=== PATIENT | male | born 1980 | race Caucasian/White ===

== ENCOUNTER 2017-12-11 18:10 | Emergency (ER) | payer MEDICAID ==
[~2017-12-11] VITALS: Ht 170.2 cm; Wt 79.4 kg
[2017-12-11 18:13] VITALS: BP 126/85
--- NOTE | 2017-12-11 18:23 | NUR ---
37Y/M C/O COUGH FOR 7 DAYS, CHEST HURTS WHEN HE COUGH. ER MD MADE AWARE OF PT STATUS.
--- NOTE | 2017-12-11 18:49 | NUR ---
Patient discharged with v/s stable. Written and verbal after care instructions given and explained. Patient alert, oriented and verbalized understanding of instructions. Ambulatory with steady gait. All questions addressed prior to discharge. ID band removed. Patient advised to follow up with PMD. Rx of PROMTHAZINE, PREDNISONE, AND ZITHROMAX given. Patient educated on indication of medication including possible reaction and side effects. Opportunity to ask questions provided and answered.
[2017-12-11 18:50] VITALS: BP 126/85
== END 2017-12-11 18:49 | disposition home or self-care (01) ==
LOC: MED 18:10
DX: J45.909 Unspecified asthma, uncomplicated (principal); R05 Cough; Z88.0 Allergy status to penicillin
CPT/HCPCS: 99283

== ENCOUNTER 2018-06-09 12:19 | Emergency (ER) | payer MEDICAID ==
[~2018-06-09] VITALS: Ht 172.7 cm; Wt 80.4 kg
[2018-06-09 12:24] VITALS: BP 130/87
--- NOTE | 2018-06-09 12:32 | NUR ---
Patient ambulated to bed 5. RN evaluating patient at bedside.
--- NOTE | 2018-06-09 13:43 | NUR ---
pt c/o cough w/ SORE throat x today 01/21; denies fever. hx;none rx;none
[2018-06-09] MEDS ORDERED: ALBUTEROL 0.083% 2.5 MG/3 ML NEBU INH ONE (13:45)
[2018-06-09] MEDS ORDERED: IPRATROPIUM 0.02% 0.5 MG/2.5 ML NEBU INH ONE (13:45)
[2018-06-09] MEDS ORDERED: predniSONE 20 MG TAB PO ONE (13:45)
[2018-06-09] MEDS ORDERED: AZITHROMYCIN 250 MG TAB PO ONE (13:45)
[2018-06-09 15:43] VITALS: BP 129/64
--- NOTE | 2018-06-09 15:43 | NUR ---
Patient discharged with v/s stable. Written and verbal after care instructions given and explained. Patient alert, oriented and verbalized understanding of instructions. Ambulatory with steady gait. All questions addressed prior to discharge. ID band removed. Patient advised to follow up with PMD. Rx of ZITHROMAX/ALBUTEROL/ROBITUSSIN DM given. Patient educated on indication of medication including possible reaction and side effects. Opportunity to ask questions provided and answered.
== END 2018-06-09 15:35 | disposition home or self-care (01) ==
LOC: MED 12:19
DX: J02.9 Acute pharyngitis, unspecified (principal); Z88.0 Allergy status to penicillin
CPT/HCPCS: 94640; 99283; J7512; J7613; J7644

== ENCOUNTER 2018-08-11 11:59 | Emergency (ER) | payer MEDICAID ==
[~2018-08-11] VITALS: Ht 172.7 cm; Wt 77.1 kg
[2018-08-11 12:06] VITALS: BP 148/92
[2018-08-11 12:35] VITALS: BP 125/75
== END 2018-08-11 12:35 | disposition home or self-care (01) ==
LOC: MED 11:59
DX: J06.9 Acute upper respiratory infection, unspecified (principal); Z88.0 Allergy status to penicillin
CPT/HCPCS: 99283

== ENCOUNTER 2018-12-20 11:02 | Emergency (ER) | payer MEDICAID ==
[~2018-12-20] VITALS: Ht 170.2 cm; Wt 83.6 kg
[2018-12-20 11:05] VITALS: BP 130/85
--- NOTE | 2018-12-20 11:23 | NUR ---
PATIENT AMBULATED TO BED 2.
--- NOTE | 2018-12-20 11:30 | NUR ---
PATIENT PRESENTS TO ED WITH N/V/D AND INTERMITTENT ABDOMINAL PAIN. AAOX4. PT DENIES ANY FEVER, CP, SOB, OR COUGH AT THIS TIME; PATIENT STATES PAIN OF 3/10 AT THIS TIME; VSS; PATIENT POSITIONED FOR COMFORT; HOB ELEVATED; BEDRAILS UP X1; BED DOWN.
[2018-12-20] MEDS ORDERED: DICYCLOMINE 20 MG/2 ML VIAL IM ONE (11:55)
[2018-12-20] MEDS ORDERED: ONDANSETRON 4 MG ODT PO ONE (11:55)
[2018-12-20 12:50] VITALS: BP 118/86
--- NOTE | 2018-12-20 12:52 | NUR ---
Patient discharged with v/s stable. Written and verbal after care instructions given and explained. Patient alert, oriented and verbalized understanding of instructions. Ambulatory with steady gait. All questions addressed prior to discharge. ID band removed. Patient advised to follow up with PMD. Rx of Lawrence clarke given. Patient educated on indication of medication including possible reaction and side effects. Opportunity to ask questions provided and answered. Addendum: 12/20/18 at 1739 by FELICIANO nanda
== END 2018-12-20 12:52 | disposition home or self-care (01) ==
LOC: MED 11:02
DX: R11.2 Nausea with vomiting, unspecified (principal); R19.7 Diarrhea, unspecified; R50.9 Fever, unspecified; R05 Cough; Z88.0 Allergy status to penicillin
CPT/HCPCS: 87804; 99283; Q0162; J0500

== ENCOUNTER 2019-03-31 14:13 | Emergency (ER) | payer MEDICAID ==
[~2019-03-31] VITALS: Ht 170.2 cm; Wt 84.4 kg
[2019-03-31 14:18] VITALS: BP 140/87
[2019-03-31 16:42] VITALS: BP 111/83
== END 2019-03-31 16:42 | disposition home or self-care (01) ==
LOC: MED 14:13
DX: B34.9 Viral infection, unspecified (principal); R11.2 Nausea with vomiting, unspecified; R19.7 Diarrhea, unspecified; Z88.0 Allergy status to penicillin
CPT/HCPCS: 71045; 87804; 99284; Q0092

== ENCOUNTER 2019-08-11 08:57 | Emergency (ER) | payer MEDICAID ==
[~2019-08-11] VITALS: Ht 170.2 cm; Wt 81.6 kg
[2019-08-11 08:58] VITALS: BP 136/81
--- NOTE | 2019-08-11 09:04 | NUR ---
PT AMBULATED TO ER BED 06
--- NOTE | 2019-08-11 09:16 | NUR ---
C/O COUGH , SORE THROAT, RUNNY NOSE, NASAL AND CHEST CONGESTION X 4 DAYS. DENIES FEVER, STATES CHILLS. STATES BODY ACHES. DID NOT RECEIVE FLU VACCINE THIS YEAR. TAKING NYQUIL TO NO RELIEF. PRESENTS REQUESTING FOR COUGH MEDICATION RX. MED HX:DENIES
--- NOTE | 2019-08-11 10:15 | NUR ---
DR MERCADO EVALUATING PT AT BEDSIDE
[2019-08-11 10:37] VITALS: BP 136/81
--- NOTE | 2019-08-11 10:37 | NUR ---
Patient discharged with v/s stable. Written and verbal after care instructions given and explained. Patient alert, oriented and verbalized understanding of instructions. Ambulatory with steady gait. All questions addressed prior to discharge. ID band removed. Patient advised to follow up with PMD. Rx of PROMETHAZINE, PREDNISONE, DOXYCYCLINE HYCLATE given. Patient educated on indication of medication including possible reaction and side effects. Opportunity to ask questions provided and answered.
== END 2019-08-11 10:37 | disposition home or self-care (01) ==
LOC: MED 08:57
DX: B34.9 Viral infection, unspecified (principal); Z88.0 Allergy status to penicillin; F12.10 Cannabis abuse, uncomplicated
CPT/HCPCS: 99283

== ENCOUNTER 2020-02-07 06:33 | Emergency (ER) | payer MEDICAID ==
[~2020-02-07] VITALS: Ht 170.2 cm; Wt 90.3 kg
[2020-02-07 06:40] VITALS: BP 131/98
--- NOTE | 2020-02-07 06:40 | NUR ---
C/O BLOOD IN URINE X TODAY. HAS BEEN HAVING DISCOMFORT X 3 DAYS AND RATES PAIN 4/10 AND DESCRIBES IT PRESSURE ANS SHARP AND LOCATED ON THE BLADDER REGION.. DENIES ANY N,V,D, OR FEVER. VSS. A&OX4 STEADY GAIT. ALLERGIES: PENICLLIN PMH: DENIES
--- NOTE | 2020-02-07 06:44 | NUR ---
PT AMBULATED TO ER BED 11
[2020-02-07] MEDS ORDERED: NACL 0.9% 1,000 ML IV SCH (06:52)
[2020-02-07] MEDS ORDERED: KETOROLAC 30 MG/ML VIAL IVP ONE (06:55)
--- NOTE | 2020-02-07 07:05 | NUR ---
PT AMBULATED TO RESTROOM WITH STEADY GAIT.
--- NOTE | 2020-02-07 07:11 | NUR ---
PT TAKEN TO CT VIA WHEELCHAIR
--- NOTE | 2020-02-07 07:19 | NUR ---
PT RETURNED FROM CT
[2020-02-07 07:37] LABS: BASOPHILS # (AUTO) 0.1 K/uL (0.00-0.22); BASOPHILS % (AUTO) 0.7 % (0.0-2.0); EOSINOPHILS # (AUTO) 0.1 K/uL (0-0.4); EOSINOPHILS % (AUTO) 1.5 % (0.0-4.0); HEMATOCRIT 45.9 % (36-52); LYMPHOCYTES # (AUTO) 2.5 K/uL (2.0-11.5); LYMPHOCYTES % (AUTO) 35.5 % (20.5-51.1); MEAN CORPUSCULAR HEMOGLOBIN 32 pg (27-31); MEAN CORPUSCULAR HGB CONC 35 g/dL (33-37); MEAN CORPUSCULAR VOLUME 90.5 fL (80-94); MONOCYTES # (AUTO) 0.6 K/uL (0.8-1.0); MONOCYTES % (AUTO) 8.8 % (1.7-9.3); NEUTROPHILS # (AUTO) 3.8 K/uL (1.8-7.7); NEUTROPHILS % (AUTO) 53.5 % (42.2-75.2); PLATELET COUNT (AUTO) 225 K/uL (140-450); RED BLOOD CELL COUNT(AUTO) 5.07 MIL/uL (4.20-6.10); RED CELL DISTRIBUTION WIDTH 13.1 % (11.6-13.7); WHITE BLOOD COUNT (AUTO) 7.1 K/uL (4.8-10.8)
[2020-02-07 07:39] LABS: APPEARANCE,URINE CLOUDY (CLEAR); BILIRUBIN,URINE NEGATIVE (NEGATIVE); BLOOD, URINE 3+ (NEGATIVE); COLOR,URINE BROWN (YELLOW); LEUKOCYTE ESTERASE ,URINE TRACE (NEGATIVE); NITRITE, URINE NEGATIVE (NEGATIVE); UGLUCOSE NEGATIVE (NEGATIVE)
[2020-02-07] MEDS ORDERED: IBUPROFEN 800 MG TAB PO ONE (07:40)
[2020-02-07 07:50] LABS: ALBUMIN 3.5 g/dL (3.4-5.0); ANION GAP 14.1 (8-16); CARBON DIOXIDE 24.9 mmol/L (21-32); TOTAL BILIRUBIN 0.7 mg/dL (0.0-1.0)
[2020-02-07 08:25] LABS: RBC,URINE 80-100 /HPF (0-5); WBC,URINE 0-5 /HPF (0-5)
[2020-02-07 09:01] VITALS: BP 128/92
--- NOTE | 2020-02-07 09:01 | NUR ---
Patient discharged with v/s stable. Written and verbal after care instructions given and explained. Patient alert, oriented and verbalized understanding of instructions. Ambulatory with steady gait. All questions addressed prior to discharge. ID band removed. Patient advised to follow up with PMD. Rx of tramadol,narcan,norco,motrin given. Patient educated on indication of medication including possible reaction and side effects. Opportunity to ask questions provided and answered.
== END 2020-02-07 09:01 | disposition home or self-care (01) ==
LOC: MED 06:33
DX: N20.0 Calculus of kidney (principal); R03.0 Elevated blood-pressure reading, without diagnosis of hypertension; F17.200 Nicotine dependence, unspecified, uncomplicated; Z88.0 Allergy status to penicillin
CPT/HCPCS: 36415; 80053; 81001; 83690; 85025; 99284; J1885; J7030

== ENCOUNTER 2020-02-18 14:42 | Emergency (ER) | payer MEDICAID ==
--- NOTE | 2020-02-18 15:10 | NUR ---
PATIENT LEFT WITHOUT BEING SEEN BY DR. BARAJAS . NO FURTHER CARE PROVIDED FOR PATIENT.
== END 2020-02-18 15:10 | disposition left against medical advice (07) ==
LOC: MED 14:42
DX: Z76.0 Encounter for issue of repeat prescription (principal); Z53.21 Procedure and treatment not carried out due to patient leaving prior to being seen by health care provider

== ENCOUNTER 2020-02-28 06:49 | Emergency (ER) | payer MEDICAID ==
[~2020-02-28] VITALS: Ht 167.6 cm; Wt 89.8 kg
[2020-02-28 06:53] VITALS: BP 142/93
--- NOTE | 2020-02-28 06:58 | NUR ---
PT AMBULATED TO BED #7
--- NOTE | 2020-02-28 07:17 | NUR ---
39 Y/O MALE C/O LOWER ABD INTERMITTENT PAIN RADIATING TO LEFT FLANK X3 WEEKS. PT STATES HE WAS DX WITH A KIDNEY STONE ON February, BUT HAS NOT YET PASSED STONE AND HAS BEEN HAVING ON/OFF LOWER ABD/FLANK PAIN RATING 9/10. PT HAS BEEN TAKING NORCO FOR THE PAIN BUT RECENTLY RAN OUT. DENIES ANY V/D, STATES NAUSEA IS INTERMITTENT. RESP EVEN AND UNLABORED. NO PMH ALLERGIES: PENICILLIN, TORADOL
[2020-02-28] MEDS ORDERED: KETOROLAC 30 MG/ML VIAL IVP ONE (07:30)
[2020-02-28] MEDS ORDERED: ONDANSETRON 4 MG/2 ML VIAL IVP ONE (07:30)
[2020-02-28] MEDS ORDERED: MORPHINE SULFATE 4 MG/ML SYR IVP ONE (07:40)
--- NOTE | 2020-02-28 07:55 | NUR ---
PT TRANSFERRED TO CT VIA WHEELCHAIR
[2020-02-28 07:58] LABS: BASOPHILS # (AUTO) 0.1 K/uL (0.00-0.22); BASOPHILS % (AUTO) 0.8 % (0.0-2.0); EOSINOPHILS # (AUTO) 0.1 K/uL (0-0.4); EOSINOPHILS % (AUTO) 1.3 % (0.0-4.0); HEMATOCRIT 48.5 % (36-52); HEMOGLOBIN 16.5 g/dL (12.0-18.0); LYMPHOCYTES # (AUTO) 2.7 K/uL (2.0-11.5); LYMPHOCYTES % (AUTO) 38.1 % (20.5-51.1); MEAN CORPUSCULAR HEMOGLOBIN 31 pg (27-31); MEAN CORPUSCULAR HGB CONC 34 g/dL (33-37); MEAN CORPUSCULAR VOLUME 91.4 fL (80-94); MONOCYTES # (AUTO) 0.6 K/uL (0.8-1.0); MONOCYTES % (AUTO) 8.3 % (1.7-9.3); NEUTROPHILS # (AUTO) 3.6 K/uL (1.8-7.7); NEUTROPHILS % (AUTO) 51.5 % (42.2-75.2); PLATELET COUNT (AUTO) 268 K/uL (140-450)
--- NOTE | 2020-02-28 08:04 | NUR ---
PT BACK FROM CT. SITTING IN BED
[2020-02-28] MEDS ORDERED: TAMSULOSIN 0.4 MG CAP PO ONE (08:15)
[2020-02-28 08:23] LABS: ALBUMIN 3.8 g/dL (3.4-5.0); ANION GAP 14.3 (8-16); CARBON DIOXIDE 28.2 mmol/L (21-32); CREATININE 1.3 mg/dL (0.6-1.3); POTASSIUM 4.5 mmol/L (3.5-5.1); TOTAL BILIRUBIN 0.6 mg/dL (0.0-1.0)
[2020-02-28 09:05] VITALS: BP 142/93
--- NOTE | 2020-02-28 09:06 | NUR ---
Patient discharged with v/s stable. Written and verbal after care instructions given and explained. Patient alert, oriented and verbalized understanding of instructions. Ambulatory with steady gait. All questions addressed prior to discharge. ID band removed. Patient advised to follow up with PMD. Rx of FLOMAX, NORCO given. Patient educated on indication of medication including possible reaction and side effects. Opportunity to ask questions provided and answered.
== END 2020-02-28 09:06 | disposition home or self-care (01) ==
LOC: MED 06:49
DX: N20.0 Calculus of kidney (principal); Z88.0 Allergy status to penicillin; Z88.8 Allergy status to other drugs, medicaments and biological substances
CPT/HCPCS: 36415; 74176; 80053; 83690; 85025; 96374; 96375; 99284; J2270; J2405

== ENCOUNTER 2020-11-04 08:14 | Emergency (ER) | payer MEDICAID ==
[~2020-11-04] VITALS: Ht 172.7 cm; Wt 90.3 kg
[2020-11-04 08:16] VITALS: BP 141/100
[2020-11-04 08:51] LABS: APPEARANCE,URINE SL CLOUDY (CLEAR); BILIRUBIN,URINE NEGATIVE (NEGATIVE); BLOOD, URINE 3+ (NEGATIVE); COLOR,URINE ORANGE (YELLOW); LEUKOCYTE ESTERASE ,URINE NEGATIVE (NEGATIVE); NITRITE, URINE NEGATIVE (NEGATIVE); PH,URINE 6.5 (5.0-9.0); UGLUCOSE NEGATIVE (NEGATIVE)
[2020-11-04 08:52] LABS: BASOPHILS # (AUTO) 0.1 K/uL (0.00-0.22); EOSINOPHILS % (AUTO) 0.5 % (0.0-4.0); HEMATOCRIT 46.6 % (36-52); HEMOGLOBIN 16.5 g/dL (12.0-18.0); LYMPHOCYTES # (AUTO) 2.2 K/uL (2.0-11.5); LYMPHOCYTES % (AUTO) 31.7 % (20.5-51.1); MEAN CORPUSCULAR HEMOGLOBIN 32 pg (27-31); MEAN CORPUSCULAR HGB CONC 35 g/dL (33-37); MEAN CORPUSCULAR VOLUME 90.9 fL (80-94); MONOCYTES # (AUTO) 0.5 K/uL (0.8-1.0); MONOCYTES % (AUTO) 7.2 % (1.7-9.3); NEUTROPHILS # (AUTO) 4.1 K/uL (1.8-7.7); NEUTROPHILS % (AUTO) 59.6 % (42.2-75.2); PLATELET COUNT (AUTO) 204 K/uL (140-450); RED BLOOD CELL COUNT(AUTO) 5.12 MIL/uL (4.20-6.10); RED CELL DISTRIBUTION WIDTH 13.2 % (11.6-13.7)
[2020-11-04 09:04] LABS: CARBON DIOXIDE 28.3 mmol/L (21-32); POTASSIUM 4.3 mmol/L (3.5-5.1); TOTAL BILIRUBIN 0.7 mg/dL (0.0-1.0)
[2020-11-04 09:08] LABS: RBC,URINE TOO NUMEROUS TO COUN /HPF (0-5); WBC,URINE 0-5 /HPF (0-5)
[2020-11-04] MEDS ORDERED: ONDA4TAB PO (09:21)
[2020-11-04] MEDS ORDERED: ACET-8386 PO (09:21)
[2020-11-04] MEDS ORDERED: TAMS0.4C96 PO (09:21)
[2020-11-04 09:49] VITALS: BP 141/100
== END 2020-11-04 09:50 | disposition home or self-care (01) ==
LOC: MED 08:14
DX: N20.0 Calculus of kidney (principal); Z88.0 Allergy status to penicillin; Z88.8 Allergy status to other drugs, medicaments and biological substances; Z79.899 Other long term (current) drug therapy
CPT/HCPCS: 36415; 80053; 81001; 83690; 85025; 87086; 99284

== ENCOUNTER 2020-12-07 08:21 | Emergency (ER) | payer MEDICAID ==
[~2020-12-07] VITALS: Ht 172.7 cm; Wt 93.4 kg
[~2020-12-07 08:21] MED LIST: ACET-8386 PO; ONDA4TAB PO; TAMS0.4C96 PO
[2020-12-07 08:30] VITALS: BP 138/102
--- NOTE | 2020-12-07 08:30 | NUR ---
Patient to bed 1. RN evaluating the patient at bedside.
--- NOTE | 2020-12-07 08:40 | NUR ---
40/M PRESENTS TO ED WITH C/O OF 7/10 SHARP ABDOMINAL PAIN X3 DAYS. PATIENT ALSO STATES HE HAS HAD NAUSEA, VOMITING, AND DIARRHEA AFTER EACH MEAL FOR 3 DAYS AND THAT HE HAS NOT HAD MUCH TO EAT. PATIENT STATES HE BEGAN TO HAVE CHILLS, BODY ACHES AND A TEMPERATURE OF 100.0 AT HOME YESTERDAY. PATIENT STATES THE PAIN IS MIDDLE EPIGASTRIC PAIN, AND RIGHT LOWER BACK PAIN ALONG WITH FLANK PAIN. RIGHT LOWER ABDOMEN IS TENDER TO TOUCH. PATIENT DENIES DYSURIA, HEMATURIA, BUT STATES HIS URINE IS A DARK BROWN.
[2020-12-07] MEDS ORDERED: ONDANSETRON 4 MG/2 ML VIAL IVP ONE (08:45)
[2020-12-07] MEDS ORDERED: MORPHINE SULFATE 4 MG/ML SYR IVP ONE ×2 (08:45→09:50)
[2020-12-07] MEDS ORDERED: FAMOTIDINE 20 MG/2 ML VIAL IVP ONE (08:45)
[2020-12-07] MEDS ORDERED: NACL 0.9% 1,000 ML IV SCH (08:45)
[2020-12-07 09:00] LABS: BASOPHILS % (AUTO) 0.7 % (0.0-2.0); EOSINOPHILS % (AUTO) 0.5 % (0.0-4.0); HEMATOCRIT 48.6 % (36-52); HEMOGLOBIN 16.8 g/dL (12.0-18.0); LYMPHOCYTES # (AUTO) 2.4 K/uL (2.0-11.5); LYMPHOCYTES % (AUTO) 38.3 % (20.5-51.1); MEAN CORPUSCULAR HEMOGLOBIN 32 pg (27-31); MEAN CORPUSCULAR HGB CONC 35 g/dL (33-37); MEAN CORPUSCULAR VOLUME 93.4 fL (80-94); MONOCYTES # (AUTO) 0.6 K/uL (0.8-1.0); NEUTROPHILS # (AUTO) 3.1 K/uL (1.8-7.7); NEUTROPHILS % (AUTO) 50.5 % (42.2-75.2); PLATELET COUNT (AUTO) 248 K/uL (140-450); RED CELL DISTRIBUTION WIDTH 13.5 % (11.6-13.7); WHITE BLOOD COUNT (AUTO) 6.2 K/uL (4.8-10.8)
--- NOTE | 2020-12-07 10:29 | NUR ---
PATIENT STILL UNABLE TO PROVIDE URINE.
[2020-12-07] MEDS ORDERED: ONDA4TAB PO (10:43)
[2020-12-07] MEDS ORDERED: ACET-8386 PO (10:43)
[2020-12-07] MEDS ORDERED: NAPR-1704 PO (10:43)
[2020-12-07] MEDS ORDERED: ATRO1TAB PO (10:43)
[2020-12-07 11:00] LABS: APPEARANCE,URINE CLEAR (CLEAR); BILIRUBIN,URINE NEGATIVE (NEGATIVE); BLOOD, URINE NEGATIVE (NEGATIVE); COLOR,URINE YELLOW (YELLOW); LEUKOCYTE ESTERASE ,URINE NEGATIVE (NEGATIVE); NITRITE, URINE NEGATIVE (NEGATIVE); UGLUCOSE NEGATIVE (NEGATIVE)
--- NOTE | 2020-12-07 11:13 | NUR ---
PATIENT APPEARS TO BE RESTING COMFORTABLY. PATIENTS WAITING FOR PENDING LAB RESULTS. CALL LIGHT WITHIN REACH, PATIENT PLACED IN A POSITION OF COMFORT. ALL NEEDS ADDRESSED AT THIS TIME.
[2020-12-07 11:56] LABS: ANION GAP 11.8 (8-16); CARBON DIOXIDE 28.1 mmol/L (21-32); POTASSIUM 3.9 mmol/L (3.5-5.1)
[2020-12-07 11:57] LABS: ALBUMIN 4.1 g/dL (3.4-5.0); CREATININE 1.1 mg/dL (0.6-1.3); TOTAL BILIRUBIN 1.7 mg/dL (0.0-1.0)
[2020-12-07 12:21] VITALS: BP 126/8
--- NOTE | 2020-12-07 12:22 | NUR ---
Patient discharged with v/s stable. Written and verbal after care instructions given and explained. Patient alert, oriented and verbalized understanding of instructions. Ambulatory with steady gait. All questions addressed prior to discharge. ID band removed. Patient advised to follow up with PMD. Rx of [place], Lomotil, Naproxen, Zofran given. Patient educated on indication of medication including possible reaction and side effects. Opportunity to ask questions provided and answered.
== END 2020-12-07 12:24 | disposition home or self-care (01) ==
LOC: MED 08:21
DX: K38.8 Other specified diseases of appendix (principal); R11.2 Nausea with vomiting, unspecified; R19.7 Diarrhea, unspecified; Z87.442 Personal history of urinary calculi; Z88.0 Allergy status to penicillin; Z88.1 Allergy status to other antibiotic agents; Z88.8 Allergy status to other drugs, medicaments and biological substances; Z79.899 Other long term (current) drug therapy
CPT/HCPCS: 36415; 74176; 80053; 81003; 83605; 83690; 85025; 87040; 96361; 96374; 96375; 96376; 99284; J2270; J2405; J3490; J7030

== ENCOUNTER 2020-12-23 07:36 | Emergency (ER) | payer MEDICAID ==
[~2020-12-23] VITALS: Ht 175.3 cm; Wt 92.5 kg
[~2020-12-23 07:36] MED LIST changes: +ATRO1TAB PO; +NAPR-1704 PO
--- NOTE | 2020-12-23 07:45 | NUR ---
PATIENT AMBULATED WITH STEADY GAIT TO BED 11
[2020-12-23 08:02] VITALS: BP 149/105
[2020-12-23] MEDS: ONDANSETRON 4 MG ODT PO ONE (08:38)
--- NOTE | 2020-12-23 08:39 | NUR ---
40/M presents to ED with c/o nausea/vomiting/diarrhea since 12/07/20. Patient states he was seen here on the 12/07/20 for the same complaint but shortly after felt the same symptoms ever since. Patient states he was prescribed medications that he misplaced and was unable to take. Patient denies abdominal pain, dysuria and hematuria. States he has been taking Tylenol and Motrin at home for the pain with some relief. Lower mid abdomen is tender to touch.
[2020-12-23] MEDS ORDERED: IBUP-2213 PO (08:49)
[2020-12-23] MEDS ORDERED: ONDA8TAB87 PO (08:49)
[2020-12-23] MEDS ORDERED: CIPR500T4 PO (08:49)
[2020-12-23] MEDS ORDERED: LOPE-289 PO (08:49)
--- NOTE | 2020-12-23 08:55 | NUR ---
Patient discharged with v/s stable. Written and verbal after care instructions given and explained. Patient alert, oriented and verbalized understanding of instructions. Ambulatory with steady gait. All questions addressed prior to discharge. ID band removed. Patient advised to follow up with PMD. Rx of Ibuprofen, Ciprofloxacin, Imodium, and Zofran given. Patient educated on indication of medication including possible reaction and side effects. Opportunity to ask questions provided and answered.
[2020-12-23 08:56] VITALS: BP 148/97
== END 2020-12-23 08:55 | disposition home or self-care (01) ==
LOC: MED 07:36
DX: S20.212A Contusion of left front wall of thorax, initial encounter (principal); R11.2 Nausea with vomiting, unspecified; R19.7 Diarrhea, unspecified; Z88.0 Allergy status to penicillin; Z88.1 Allergy status to other antibiotic agents; Z88.8 Allergy status to other drugs, medicaments and biological substances; Z79.899 Other long term (current) drug therapy; X58.XXXA Exposure to other specified factors, initial encounter; Y93.89 Activity, other specified; Y92.89 Other specified places as the place of occurrence of the external cause; Y99.8 Other external cause status
CPT/HCPCS: 99283; Q0162

== ENCOUNTER 2021-05-03 08:40 | Emergency (ER) | payer MEDICAID, SELFPAY ==
[~2021-05-03] VITALS: Ht 175.3 cm; Wt 95.3 kg
[~2021-05-03 08:40] MED LIST changes: +CIPR500T4 PO; +IBUP-2213 PO; +LOPE-289 PO; +ONDA8TAB87 PO
[2021-05-03 08:46] VITALS: BP 166/98
[2021-05-03] MEDS ORDERED: LORazepam 1 MG TAB PO ONE (10:25)
--- NOTE | 2021-05-03 10:29 | NUR ---
PT AMBULATED TO BED
--- NOTE | 2021-05-03 10:30 | NUR ---
40 Y/O MALE C/O NONRADIATING CHEST PAIN X5 DAYS. CP IS WORSE WITH COUGHING AND WITH MOVEMENT. +SOB/ COUGH WITH GREEN MUCUS. PT WAS PUSHED IN HIS CHEST IN SAME LOCATION X5 DAYS AGO. PT RECEIVED 1ST COVID VACCINE 04/30. STATES 510 PRESSURE PAIN. PMH:DENIES ALLERGIES:PCN, ERYTHROMYCIN, TORODOL
[2021-05-03] MEDS ORDERED: MORPHINE SULFATE 4 MG/ML SYR IM ONE (11:40)
--- NOTE | 2021-05-03 13:12 | NUR ---
Patient appears to be resting in bed. Vital Signs within normal limits. Respirations even and unlabored.
[2021-05-03] MEDS ORDERED: ACET-8386 PO ×2 (13:13→13:48)
[2021-05-03 13:40] VITALS: BP 150/82
--- NOTE | 2021-05-03 13:40 | NUR ---
Patient discharged with v/s stable. Written and verbal after care instructions given and explained. Patient alert, oriented and verbalized understanding of instructions. Ambulatory with steady gait. All questions addressed prior to discharge. ID band removed. Patient advised to follow up with PMD. Rx of HYDROCODONE/ACETAMINOPHEN given. Patient educated on indication of medication including possible reaction and side effects. Opportunity to ask questions provided and answered.
[2021-05-03] MEDS ORDERED: NAPR-54 PO (13:48)
== END 2021-05-03 13:40 | disposition home or self-care (01) ==
LOC: MED 08:40
DX: R07.89 Other chest pain (principal); R06.02 Shortness of breath; R05 Cough; F17.200 Nicotine dependence, unspecified, uncomplicated; Z88.0 Allergy status to penicillin; Z88.1 Allergy status to other antibiotic agents; Z88.8 Allergy status to other drugs, medicaments and biological substances; Z79.899 Other long term (current) drug therapy; Z71.6 Tobacco abuse counseling
CPT/HCPCS: 71045; 93005; 96372; 99283; J2270

== ENCOUNTER 2021-07-17 09:39 | Emergency (ER) | payer MEDICAID, SELFPAY ==
[~2021-07-17] VITALS: Ht 175.3 cm; Wt 96.6 kg
[~2021-07-17 09:39] MED LIST changes: +NAPR-54 PO
[2021-07-17 09:44] VITALS: BP 160/117
--- NOTE | 2021-07-17 09:51 | NUR ---
AMBULATED TO BED 1
[2021-07-17] MEDS ORDERED: IBUP-2213 PO (10:25)
[2021-07-17] MEDS ORDERED: PROM118S5 PO (10:25)
[2021-07-17 10:50] VITALS: BP 150/90
== END 2021-07-17 10:50 | disposition home or self-care (01) ==
LOC: MED 09:39
DX: J20.9 Acute bronchitis, unspecified (principal); H66.91 Otitis media, unspecified, right ear; Z88.0 Allergy status to penicillin; Z88.8 Allergy status to other drugs, medicaments and biological substances; Z79.899 Other long term (current) drug therapy
CPT/HCPCS: 99281

== ENCOUNTER 2021-09-04 08:04 | Emergency (ER) | payer MEDICAID, SELFPAY ==
[~2021-09-04] VITALS: Ht 175.3 cm; Wt 95.3 kg
[~2021-09-04 08:04] MED LIST changes: -ACET-8386 PO; -ATRO1TAB PO; -CIPR500T4 PO; -LOPE-289 PO; -NAPR-1704 PO; -NAPR-54 PO; -ONDA4TAB PO; -ONDA8TAB87 PO; +PROM118S5 PO
[2021-09-04 08:10] VITALS: BP 150/88
--- NOTE | 2021-09-04 08:13 | NUR ---
DEMETRIA. HANDED ON URINE CUP.
--- NOTE | 2021-09-04 08:24 | NUR ---
BIB SELF c/o 610 lower abdominal pain, hematuria, lower back pain , nausea, diarrhea x today. PMH: HTN
--- NOTE | 2021-09-04 08:42 | NUR ---
URINE WALKED TO THE LAB.
[2021-09-04] MEDS ORDERED: HYDROcodone/APAP 5/325 MG 1 TAB TAB PO ONE (09:20)
[2021-09-04] MEDS ORDERED: KETOROLAC 30 MG/ML VIAL IM ONE (09:20)
[2021-09-04 12:49] LABS: BASOPHILS # (AUTO) 0.1 K/uL (0.00-0.22); BASOPHILS % (AUTO) 0.9 % (0.0-2.0); EOSINOPHILS # (AUTO) 0.1 K/uL (0-0.4); EOSINOPHILS % (AUTO) 1.2 % (0.0-4.0); HEMATOCRIT 47.7 % (36-52); HEMOGLOBIN 17.1 g/dL (12.0-18.0); LYMPHOCYTES # (AUTO) 2.5 K/uL (2.0-11.5); LYMPHOCYTES % (AUTO) 32.2 % (20.5-51.1); MEAN CORPUSCULAR HEMOGLOBIN 33 pg (27-31); MEAN CORPUSCULAR HGB CONC 36 g/dL (33-37); MEAN CORPUSCULAR VOLUME 91.7 fL (80-94); MONOCYTES # (AUTO) 0.7 K/uL (0.8-1.0); MONOCYTES % (AUTO) 8.9 % (1.7-9.3); NEUTROPHILS # (AUTO) 4.4 K/uL (1.8-7.7); NEUTROPHILS % (AUTO) 56.8 % (42.2-75.2); PLATELET COUNT (AUTO) 274 K/uL (140-450); RED BLOOD CELL COUNT(AUTO) 5.21 MIL/uL (4.20-6.10); RED CELL DISTRIBUTION WIDTH 13.5 % (11.6-13.7); WHITE BLOOD COUNT (AUTO) 7.8 K/uL (4.8-10.8)
[2021-09-04 12:56] LABS: ALBUMIN 3.9 g/dL (3.4-5.0); CARBON DIOXIDE 23.8 mmol/L (21-32); CREATININE 0.8 mg/dL (0.6-1.3); POTASSIUM 3.8 mmol/L (3.5-5.1); TOTAL BILIRUBIN 1.1 mg/dL (0.0-1.0)
[2021-09-04] MEDS ORDERED: ACET-8386 PO ×2 (13:53→15:13)
[2021-09-04] MEDS ORDERED: NAPR-54 PO ×2 (13:53→15:13)
[2021-09-04 13:57] LABS: APPEARANCE,URINE CLOUDY (CLEAR); BILIRUBIN,URINE NEGATIVE (NEGATIVE); BLOOD, URINE 3+ (NEGATIVE); COLOR,URINE BROWN (YELLOW); LEUKOCYTE ESTERASE ,URINE TRACE (NEGATIVE); NITRITE, URINE POSITIVE (NEGATIVE); PH,URINE 6.5 (5.0-9.0); UGLUCOSE NEGATIVE (NEGATIVE)
[2021-09-04 14:00] LABS: RBC,URINE 80-100 /HPF (0-5)
[2021-09-04] MEDS ORDERED: CIPR250T6 PO ×2 (14:07→15:13)
--- NOTE | 2021-09-04 14:16 | NUR ---
Patient discharged with v/s stable. Written and verbal after care instructions given and explained. Patient alert, oriented and verbalized understanding of instructions. Ambulatory with steady gait. All questions addressed prior to discharge. ID band removed. Patient advised to follow up with PMD. Rx of HYDROCODONE/ACETAMINOPHEN, CIPROFLAXACIN, NAPROXEN given. Opportunity to ask questions provided and answered.
== END 2021-09-04 14:15 | disposition home or self-care (01) ==
LOC: MED 08:04
DX: N39.0 Urinary tract infection, site not specified (principal); Z87.442 Personal history of urinary calculi; Z79.899 Other long term (current) drug therapy; Z88.0 Allergy status to penicillin; Z88.8 Allergy status to other drugs, medicaments and biological substances
CPT/HCPCS: 36415; 80053; 81001; 85025; 87086; 99283

== ENCOUNTER 2021-09-06 09:37 | Emergency (ER) | payer MEDICAID, SELFPAY ==
[~2021-09-06] VITALS: Ht 175.3 cm; Wt 86.2 kg
[~2021-09-06 09:37] MED LIST changes: +ACET-8386 PO; +CIPR250T6 PO; +NAPR-54 PO
[2021-09-06 09:40] VITALS: BP 143/70
[2021-09-06] MEDS ORDERED: MORPHINE SULFATE 2 MG/ML SYR IM ONE (10:00)
[2021-09-06] MEDS ORDERED: KETOROLAC 30 MG/ML VIAL IM ONE (10:00)
[2021-09-06] MEDS ORDERED: MORPHINE SULFATE 2 MG/ML SYR ONE ×2 (11:04→11:12)
[2021-09-06] MEDS ORDERED: KETOROLAC 30 MG/ML VIAL ONE (11:05)
--- NOTE | 2021-09-06 11:15 | NUR ---
41 Y/O MALE BIBA C/O LLQ ABDOMINAL PAIN RADIATING TO L TESTICLE X3 DAYS. PT SEEN HERE 09/04 FOR SAME S/S AND STATES PAIN IS STILL THERE. DENIES NAUSEA/VOMITING/DIARRHEA. PT ALSO C/O HEMATURIA X2 DAYS AND "DIFFICULTY"/PAIN STARTING TO URINATE. ABD IS FLAT, SOFT, AND TENDER ON PALPATION. PT A/O X4 WITH EVEN AND UNLABORED RESPIRATIONS PMG:KIDNEY STONES, HTN ALLERGIES: PCN AND TORADOL
[2021-09-06 11:37] LABS: BASOPHILS % (AUTO) 0.6 % (0.0-2.0); EOSINOPHILS # (AUTO) 0.1 K/uL (0-0.4); HEMATOCRIT 44.9 % (36-52); HEMOGLOBIN 15.9 g/dL (12.0-18.0); LYMPHOCYTES # (AUTO) 2.4 K/uL (2.0-11.5); LYMPHOCYTES % (AUTO) 37.9 % (20.5-51.1); MEAN CORPUSCULAR HEMOGLOBIN 33 pg (27-31); MEAN CORPUSCULAR HGB CONC 35 g/dL (33-37); MEAN CORPUSCULAR VOLUME 91.9 fL (80-94); MONOCYTES # (AUTO) 0.6 K/uL (0.8-1.0); NEUTROPHILS # (AUTO) 3.3 K/uL (1.8-7.7); NEUTROPHILS % (AUTO) 51.5 % (42.2-75.2); PLATELET COUNT (AUTO) 240 K/uL (140-450); RED BLOOD CELL COUNT(AUTO) 4.88 MIL/uL (4.20-6.10); RED CELL DISTRIBUTION WIDTH 13.6 % (11.6-13.7); WHITE BLOOD COUNT (AUTO) 6.3 K/uL (4.8-10.8)
[2021-09-06 11:49] LABS: APPEARANCE,URINE CLOUDY (CLEAR); BILIRUBIN,URINE NEGATIVE (NEGATIVE); BLOOD, URINE 3+ (NEGATIVE); LEUKOCYTE ESTERASE ,URINE NEGATIVE (NEGATIVE); NITRITE, URINE NEGATIVE (NEGATIVE); PH,URINE 6.5 (5.0-9.0); UGLUCOSE NEGATIVE (NEGATIVE)
[2021-09-06 11:57] LABS: ALBUMIN 3.9 g/dL (3.4-5.0); ANION GAP 16.9 (8-16); POTASSIUM 3.9 mmol/L (3.5-5.1); TOTAL BILIRUBIN 0.9 mg/dL (0.0-1.0)
[2021-09-06 11:58] LABS: COLOR,URINE BLOODY (YELLOW)
[2021-09-06 12:04] LABS: RBC,URINE >20 (MANY) /HPF (0-5); WBC,URINE 0-5 /HPF (0-5)
[2021-09-06] MEDS ORDERED: TAMS0.4C97 PO ×3 (12:20→12:55)
[2021-09-06] MEDS ORDERED: ACET-8386 PO ×2 (12:20)
[2021-09-06 13:10] VITALS: BP 145/95
--- NOTE | 2021-09-06 13:10 | NUR ---
Patient discharged with v/s stable. Written and verbal after care instructions ABOUT KIDNEY STONES given and explained. Patient alert, oriented and verbalized understanding of instructions. Ambulatory with steady gait. All questions addressed prior to discharge. ID band removed. Patient advised to follow up with PMD. Rx of NORCO 5-325MG AND TAMSULOSIN given. Patient educated on indication of medication including possible reaction and side effects. Opportunity to ask questions provided and answered.
== END 2021-09-06 13:10 | disposition home or self-care (01) ==
LOC: MED 09:37
DX: N23 Unspecified renal colic (principal); Z88.0 Allergy status to penicillin; Z88.6 Allergy status to analgesic agent; N20.2 Calculus of kidney with calculus of ureter
CPT/HCPCS: 36415; 74176; 80053; 81001; 85025; 96372; 99284; J1885; J2270

== ENCOUNTER 2021-09-13 11:25 | Emergency (ER) | payer MEDICAID ==
[~2021-09-13] VITALS: Ht 175.3 cm; Wt 95.3 kg
[~2021-09-13 11:25] MED LIST changes: +TAMS0.4C97 PO
[2021-09-13 11:57] VITALS: BP 152/99
[2021-09-13] MEDS ORDERED: PRED50TA2 PO (12:08)
[2021-09-13] MEDS ORDERED: CETI10SG1 PO (12:08)
[2021-09-13] MEDS ORDERED: AZIT250T4 PO (12:08)
--- NOTE | 2021-09-13 12:12 | NUR ---
PT SEEN AND D/C BY DR CRAWFORD, NO NURSING INTERVENTIONS PROVIDED
--- NOTE | 2021-09-13 12:13 | NUR ---
Patient discharged with v/s stable. Written and verbal after care instructions ABOUT UVULITIS given and explained. Patient alert, oriented and verbalized understanding of instructions. All questions addressed prior to discharge. ID band removed. Patient advised to follow up with PMD. Rx of PREDNISONE AND ZITHROMAX Z PACK given. Patient educated on indication of medication including possible reaction and side effects. Opportunity to ask questions provided and answered.
== END 2021-09-13 12:12 | disposition home or self-care (01) ==
LOC: MED 11:25
DX: K12.2 Cellulitis and abscess of mouth (principal); I10 Essential (primary) hypertension; Z79.2 Long term (current) use of antibiotics; Z79.899 Other long term (current) drug therapy; Z79.891 Long term (current) use of opiate analgesic; Z79.1 Long term (current) use of non-steroidal anti-inflammatories (NSAID); Z88.0 Allergy status to penicillin; Z88.6 Allergy status to analgesic agent
CPT/HCPCS: 99283

== ENCOUNTER 2021-12-17 15:18 | Emergency (ER) | payer MEDICAID ==
[~2021-12-17] VITALS: Ht 170.2 cm; Wt 93.2 kg
[~2021-12-17 15:18] MED LIST changes: +AZIT250T4 PO; +CETI10SG1 PO; +PRED50TA2 PO
[2021-12-17 15:22] VITALS: BP 100/63
--- NOTE | 2021-12-17 15:25 | NUR ---
Pt ambulated to bed 06 with steady/even gait
[2021-12-17] MEDS ORDERED: NACL 0.9% 1,000 ML IV ONE (15:30)
[2021-12-17] MEDS ORDERED: MORPHINE SULFATE 4 MG/ML SYR IVP ONE (15:30)
--- NOTE | 2021-12-17 15:31 | NUR ---
Dr. Botello is evaluating pt at bedside
--- NOTE | 2021-12-17 16:18 | NUR ---
DR CHRISTENSEN RE-EVALUATING PATIENT AT BEDSIDE.
[2021-12-17] MEDS ORDERED: ACET-8386 PO (16:33)
--- NOTE | 2021-12-17 16:50 | NUR ---
IV removed, catheter intact and site benign. Applied folded 4x4 gauze and tape to stop bleeding.
--- NOTE | 2021-12-17 16:50 | NUR ---
The patient's care was reviewed and supervised by Warren Dugan RN.
[2021-12-17] MEDS ORDERED: IBUP-2213 PO (16:55)
--- NOTE | 2021-12-17 16:55 | NUR ---
Patient discharged with v/s stable. Written and verbal after care instructions given and explained for Acute Back Pain (Adult). Patient alert, oriented and verbalized understanding of instructions. Ambulatory with steady gait. All questions addressed prior to discharge. ID band removed. Patient advised to follow up with PMD. Rx of Hydrocodone/Acetaminophen given. Patient educated on indication of medication including possible reaction and side effects. Opportunity to ask questions provided and answered.
== END 2021-12-17 16:55 | disposition home or self-care (01) ==
LOC: MED 15:18
DX: M54.50 Low back pain, unspecified (principal); F17.200 Nicotine dependence, unspecified, uncomplicated; I10 Essential (primary) hypertension; Z79.899 Other long term (current) drug therapy; Z88.0 Allergy status to penicillin; Z88.8 Allergy status to other drugs, medicaments and biological substances
CPT/HCPCS: 81002; 96361; 96374; 99283; J2270; J7030

== ENCOUNTER 2022-02-03 03:37 | Emergency (ER) | payer MEDICAID ==
[~2022-02-03] VITALS: Ht 170.2 cm; Wt 93.0 kg
[2022-02-03 03:42] VITALS: BP 138/116
--- NOTE | 2022-02-03 03:49 | NUR ---
PATIENT AMBULATED TO BED 2
--- NOTE | 2022-02-03 03:50 | NUR ---
Dr. Ferraro examining patient.
--- NOTE | 2022-02-03 03:56 | NUR ---
41 YO M BIB SELF WITH C/C OF N/V X1AM. REPORTS COLD SWEATS, SOB, COUGH AND HOT FLASHES. DENIES FEVER AND CONGESTION. REPORTS 3/10 LLQ PAIN THAT RAD TO BACK. DENIES TAKING ANYTHING BEFORE COMING IN. DENIES HX, RX ALLERGY:PCN ADN TORADOL
[2022-02-03] MEDS ORDERED: ONDANSETRON 4 MG ODT PO ONE (04:40)
[2022-02-03] MEDS ORDERED: LORazepam 1 MG TAB PO ONE (04:40)
[2022-02-03 05:34] VITALS: BP 138/116
--- NOTE | 2022-02-03 05:34 | NUR ---
WHEN IN TO D/C PT. PT IS RESTING, STATES HE FEELS BETTER BUT WOULD LIKE TO REST A BIT LONGER. ERMD STATED THAT'S FINE
--- NOTE | 2022-02-03 05:34 | NUR ---
Patient discharged with v/s stable. Written and verbal after care instructions given and explained. Patient verbalized understanding. Ambulatory with steady gait. All questions addressed prior to discharge. Advised to follow up with PMD.
== END 2022-02-03 05:34 | disposition home or self-care (01) ==
LOC: MED 03:37
DX: R06.00 Dyspnea, unspecified (principal); F41.9 Anxiety disorder, unspecified; I10 Essential (primary) hypertension; Z88.0 Allergy status to penicillin; Z88.1 Allergy status to other antibiotic agents; Z79.899 Other long term (current) drug therapy
CPT/HCPCS: 71045; 93005; 99283; Q0092; Q0162

== ENCOUNTER 2022-04-10 19:59 | Emergency (ER) | payer MEDICAID ==
[~2022-04-10] VITALS: Ht 172.7 cm; Wt 92.2 kg
[2022-04-10 20:15] VITALS: BP 171/127
--- NOTE | 2022-04-10 20:19 | NUR ---
PT TAKEN TO BED 05.
[2022-04-10] MEDS ORDERED: LORazepam 1 MG TAB PO ONE (20:50)
--- NOTE | 2022-04-10 20:55 | NUR ---
LAB AT BEDSIDE
--- NOTE | 2022-04-10 20:58 | NUR ---
XRAY AT BEDSIDE
--- NOTE | 2022-04-10 21:10 | NUR ---
41YR OLD MALE C/O "NOT FEELING WELL" CP X1 DAY. PT HAS HX OF HTN TOOK B/P THIS EVENING WAS ELEVATED. CP /BACK PAIN 11/21. INJURY TO RIBS A FEW DAYS AGO. PAIN RADIATES TO MID BACK. DENIES SOB. RESP EVEN AND UNLABORED. SKIN INTACT. PT IS A&OX4. PT ON BEDSIDE STUDIO RECEPTIONIST. HOB ELEVATED. BED AT LOWEST POSITION PCN AZITHROMYCIN KETOROLAC HTN
[2022-04-10 21:21] LABS: BASOPHILS # (AUTO) 0.1 K/uL (0.00-0.22); BASOPHILS % (AUTO) 0.7 % (0.0-2.0); EOSINOPHILS # (AUTO) 0.1 K/uL (0-0.4); EOSINOPHILS % (AUTO) 1.3 % (0.0-4.0); HEMATOCRIT 46.8 % (36-52); HEMOGLOBIN 16.3 g/dL (12.0-18.0); LYMPHOCYTES # (AUTO) 2.5 K/uL (2.0-11.5); LYMPHOCYTES % (AUTO) 32.6 % (20.5-51.1); MEAN CORPUSCULAR HEMOGLOBIN 33 pg (27-31); MEAN CORPUSCULAR HGB CONC 35 g/dL (33-37); MEAN CORPUSCULAR VOLUME 93.7 fL (80-94); MONOCYTES # (AUTO) 0.7 K/uL (0.8-1.0); MONOCYTES % (AUTO) 8.9 % (1.7-9.3); NEUTROPHILS # (AUTO) 4.4 K/uL (1.8-7.7); NEUTROPHILS % (AUTO) 56.5 % (42.2-75.2); PLATELET COUNT (AUTO) 258 K/uL (140-450); RED CELL DISTRIBUTION WIDTH 13.4 % (11.6-13.7); WHITE BLOOD COUNT (AUTO) 7.8 K/uL (4.8-10.8)
[2022-04-10 21:38] LABS: ALBUMIN 3.7 g/dL (3.4-5.0); ANION GAP 14.1 (8-16); CARBON DIOXIDE 27.3 mmol/L (21-32); POTASSIUM 3.4 mmol/L (3.5-5.1); TOTAL BILIRUBIN 0.8 mg/dL (0.0-1.0)
--- NOTE | 2022-04-10 22:27 | NUR ---
PT SLEEPING RESP EVEN AND UNLABORED. HOB ELEVATED. PENDING LAB RESULTS.
--- NOTE | 2022-04-10 22:27 | NUR ---
Note darius in ED - 04/10/22 at 2243 by [email or web address] PT SLEEPING RESP EVEN AND UNLABORED. HOB ELEVATED. PENDING LAB RESULTS.
[2022-04-10] MEDS ORDERED: KETOROLAC 30 MG/ML VIAL IM ONE (22:50)
--- NOTE | 2022-04-10 22:58 | NUR ---
TORADOL NOT ADMIN. PT HAS ALLERGY TO MED
[2022-04-10] MEDS ORDERED: LIB25 PO (23:15)
[2022-04-10] MEDS ORDERED: METO25TE2 PO (23:15)
[2022-04-10 23:27] VITALS: BP 117/78
--- NOTE | 2022-04-10 23:27 | NUR ---
Patient discharged with v/s stable. Written and verbal after care instructions given and explained. Patient alert, oriented and verbalized understanding of instructions. Ambulatory with steady gait. All questions addressed prior to discharge. ID band removed. Patient advised to follow up with PMD. Rx of LIBRIUM TOPROL given.
--- NOTE | 2022-04-10 23:31 | NUR ---
The patient's care was reviewed and supervised by Ellen Graff RN.
== END 2022-04-10 23:27 | disposition home or self-care (01) ==
LOC: MED 19:59
DX: I10 Essential (primary) hypertension (principal); F10.239 Alcohol dependence with withdrawal, unspecified; F17.200 Nicotine dependence, unspecified, uncomplicated; Y90.9 Presence of alcohol in blood, level not specified; Z88.0 Allergy status to penicillin; Z79.1 Long term (current) use of non-steroidal anti-inflammatories (NSAID); Z88.1 Allergy status to other antibiotic agents
CPT/HCPCS: 36415; 70450; 71045; 80053; 83880; 84484; 85025; 93005; 99285; Q0092; J1885

== ENCOUNTER 2022-05-29 06:47 | Emergency (ER) | payer MEDICAID ==
[~2022-05-29] VITALS: Ht 172.7 cm; Wt 92.1 kg
[~2022-05-29 06:47] MED LIST changes: +LIB25 PO; +METO25TE2 PO
[2022-05-29 06:52] VITALS: BP 150/115
--- NOTE | 2022-05-29 07:01 | NUR ---
Dr. Zaragoza examining patient.
[2022-05-29] MEDS ORDERED: ALBUTEROL 0.083% 2.5 MG/3 ML NEBU INH ONE (07:05)
--- NOTE | 2022-05-29 07:05 | NUR ---
COVID-19 and Flu swabs collected and sent to lab.
[2022-05-29] MEDS ORDERED: INHA1SPA24 MC (07:07)
[2022-05-29] MEDS ORDERED: ROB PO (07:07)
[2022-05-29] MEDS ORDERED: ALBU0.0912 INH (07:07)
--- NOTE | 2022-05-29 07:14 | NUR ---
WENT TO GO GIVE PT HIS TX. RN STATED PT JUST GOT UP AND WALED OUT. RN STATED NO DISTRESS WAS NOTED. TX WAS NOT ADMINISTERED.
[2022-05-29 07:30] VITALS: BP 150/115
--- NOTE | 2022-05-29 07:30 | NUR ---
Patient discharged with OUT PAPERWORK. Written and verbal after care instructions given and explained. Patient alert, oriented and verbalized understanding of instructions. Ambulatory with steady gait. Rx of INHALOR, ASSIST DEVICES, ALBUTEROL SULFATE & ROBITUSSIN given.
== END 2022-05-29 07:30 | disposition home or self-care (01) ==
LOC: MED 06:47
DX: J20.8 Acute bronchitis due to other specified organisms (principal); Z20.822 Contact with and (suspected) exposure to COVID-19
CPT/HCPCS: 87426; 87804; 99283; J7613

== ENCOUNTER 2022-06-05 09:23 | Emergency (ER) | payer MEDICAID ==
[~2022-06-05] VITALS: Ht 172.7 cm; Wt 92.5 kg
[~2022-06-05 09:23] MED LIST changes: +ALBU0.0912 INH; +INHA1SPA24 MC; +ROB PO
[2022-06-05 09:27] VITALS: BP 122/98
--- NOTE | 2022-06-05 09:35 | NUR ---
42/M WALKED IN C/O COUGH, CONGESTION, AND RUNNY NOSE ONSET 3 DAYS. PT STATES HE WAS SEEN HERE THIS WEEK AND WAS DX BRONCHITIS AND WAS PX INHALER. PT STATES RELIEF FROM CONGESTION WHEN USING INHALER BUT CONTINUES TO FEEL CONGESTED. DENIES FEVER OR BODY ACHE. TESTED FOR COVID AT HOME YESTERDAY AND IT WAS NEGATIVE. AAO4, AMBULATORY, ON ROOM AIR
[2022-06-05] MEDS ORDERED: ALBUTEROL SULFATE/IPRATROPIU 3 ML SOL IH ONE (10:25)
--- NOTE | 2022-06-05 10:46 | NUR ---
RT AT BEDSIDE FOR BR TX.
--- NOTE | 2022-06-05 10:46 | NUR ---
URINE COLLECTED AND SENT TO LAB
--- NOTE | 2022-06-05 10:46 | NUR ---
XR AT BEDSIDE
[2022-06-05 11:01] LABS: APPEARANCE,URINE CLEAR (CLEAR); BILIRUBIN,URINE NEGATIVE (NEGATIVE); BLOOD, URINE NEGATIVE (NEGATIVE); COLOR,URINE YELLOW (YELLOW); LEUKOCYTE ESTERASE ,URINE NEGATIVE (NEGATIVE); NITRITE, URINE NEGATIVE (NEGATIVE); UGLUCOSE NEGATIVE (NEGATIVE)
--- NOTE | 2022-06-05 11:05 | NUR ---
Latesha mccoy in EDM - 06/05/22 at 1110 by [email or web address] PT CHANGED INTO GOWN, ACCUCHECK DONE. PT CLEANED AFTER BEDPAN USE. PT DID NOT HAVE ANY BOWEL MOVEMENT. 100 CC URINE OUTPUT
--- NOTE | 2022-06-05 11:39 | NUR ---
PT STATES FEELS BETTER TO BREATHE AFTER BR TX
[2022-06-05] MEDS ORDERED: PROM6.2589 PO (11:41)
[2022-06-05] MEDS ORDERED: DEC4 PO (11:42)
[2022-06-05 11:45] VITALS: BP 136/83
--- NOTE | 2022-06-05 11:45 | NUR ---
Patient discharged with v/s stable. Written and verbal after care instructions given and explained. Patient alert, oriented and verbalized understanding of instructions. Ambulatory with steady gait. All questions addressed prior to discharge. ID band removed. Patient advised to follow up with PMD. Rx of PROMETHAZINE AND DEXAMETHAZONE given. Patient educated on indication of medication including possible reaction and side effects. Opportunity to ask questions provided and answered.
== END 2022-06-05 11:45 | disposition home or self-care (01) ==
LOC: MED 09:23
DX: J40 Bronchitis, not specified as acute or chronic (principal); I10 Essential (primary) hypertension; Z88.0 Allergy status to penicillin; Z88.1 Allergy status to other antibiotic agents; Z79.1 Long term (current) use of non-steroidal anti-inflammatories (NSAID); Z79.899 Other long term (current) drug therapy
CPT/HCPCS: 71045; 81003; 99284; Q0092

== ENCOUNTER 2023-07-28 10:59 | Emergency (ER) | payer MEDICAID ==
[~2023-07-28] VITALS: Ht 172.7 cm; Wt 87.5 kg
[~2023-07-28 10:59] MED LIST changes: -ACET-8386 PO; +ACET-8905 PO; +DEC4 PO; +[UNRECOGNIZED DRUG - CODE] PO
[2023-07-28 11:46] VITALS: BP 130/83; PULSE 114; RESP 20; TEMP 98.1; O2SAT 97
[2023-07-28 12:22] LABS: FLU B ANTIGEN negative (NEGATIVE)
[2023-07-28 12:25] LABS: FLU A ANTIGEN POSITIVE (NEGATIVE)
[2023-07-28] MEDS: DICYCLOMINE HCL LIQUID 20 MG, ALUMINUM HYD/MAG/SIMETHICONE 30 ML, LIDOCAINE VISCOUS 2% ... PO ONE ×3 (13:35)
[2023-07-28] MEDS: ONDANSETRON 4 MG ODT PO ONE (13:35)
[2023-07-28] MEDS: ACETAMINOPHEN EXTRA STRENGTH 500 MG TAB PO ONE (13:50)
[2023-07-28] MEDS ORDERED: PROM118S5 PO (14:14)
[2023-07-28] MEDS ORDERED: ACET-10509 PO (14:14)
[2023-07-28] MEDS ORDERED: TAM75 PO (14:14)
[2023-07-28] MEDS ORDERED: ONDANSETRON 4 MG ODT ONE (15:16)
[2023-07-28] MEDS ORDERED: ALUMINUM HYD/MAG/SIMETHICONE 30 ML UDC ONE (15:16)
[2023-07-28] MEDS ORDERED: ACETAMINOPHEN EXTRA STRENGTH 500 MG TAB ONE (15:17)
[2023-07-28 15:24] VITALS: BP 130/83; PULSE 114; RESP 20; TEMP 98.1
[2023-07-28 15:34] VITALS: O2SAT 97
== END 2023-07-28 15:21 | disposition home or self-care (01) ==
LOC: MED 10:59
DX: J10.1 Influenza due to other identified influenza virus with other respiratory manifestations (principal); Z20.822 Contact with and (suspected) exposure to COVID-19; I10 Essential (primary) hypertension; Z88.0 Allergy status to penicillin; Z79.1 Long term (current) use of non-steroidal anti-inflammatories (NSAID); Z88.8 Allergy status to other drugs, medicaments and biological substances; Z79.899 Other long term (current) drug therapy
CPT/HCPCS: 87426; 87804; 99284; Q0162

== ENCOUNTER 2023-08-15 22:17 | Emergency (ER) | payer MEDICAID ==
[~2023-08-15] VITALS: Ht 172.7 cm; Wt 81.6 kg
[~2023-08-15 22:17] MED LIST changes: +ACET-10509 PO; +TAM75 PO
[2023-08-15 22:23] VITALS: BP 140/104; PULSE 90; RESP 20; TEMP 98; O2SAT 98
== END 2023-08-15 23:00 | disposition left against medical advice (07) ==
LOC: MED 22:17
DX: R51.9 Headache, unspecified (principal); R03.0 Elevated blood-pressure reading, without diagnosis of hypertension; Z53.21 Procedure and treatment not carried out due to patient leaving prior to being seen by health care provider
CPT/HCPCS: 99281